=== PATIENT | female | born 1975 | race Asian ===

== ENCOUNTER 2017-12-28 10:49 | Emergency (ER) | payer OTHER ==
[~2017-12-28] VITALS: Ht 162.6 cm; Wt 57.8 kg
[2017-12-28 10:59] VITALS: BP 123/75
--- NOTE | 2017-12-28 11:23 | NUR ---
PATIENT AMBULATED TO BED 8.
--- NOTE | 2017-12-28 11:30 | NUR ---
42Y/F BIB PER DR BARRY WITH C/O VAGINAL BLEEDING/ABDOMINAL PAIN TODAY; QUANTATIVE HCG ON 12/17/2017 = 79, YESTERDAY = 73. VSS; PATIENT POSITIONED FOR COMFORT; HOB ELEVATED; BEDRAILS UP X1; BED DOWN. ER MD MADE AWARE OF PT STATUS.
--- NOTE | 2017-12-28 11:30 | NUR ---
PT URINE COLLECTED AND PUT INTO THE SPECIMEN CONATINER IN THE ER
--- NOTE | 2017-12-28 13:30 | NUR ---
Patient appears to be resting comfortably in bed.
[2017-12-28 14:23] LABS: BASOPHILS # (AUTO) 0.1 K/uL (0.00-0.22); BASOPHILS % (AUTO) 0.7 % (0.0-2.0); EOSINOPHILS # (AUTO) 0.1 K/uL (0-0.4); EOSINOPHILS % (AUTO) 0.7 % (0.0-4.0); HEMATOCRIT 38.2 % (36-48); HEMOGLOBIN 12.5 g/dL (12.0-16.0); LYMPHOCYTES # (AUTO) 2.6 K/uL (2.5-16.5); LYMPHOCYTES % (AUTO) 22.5 % (20.5-51.1); MEAN CORPUSCULAR HEMOGLOBIN 30 pg (27-31); MEAN CORPUSCULAR HGB CONC 33 g/dL (33-37); MEAN CORPUSCULAR VOLUME 91.3 fL (80-94); MONOCYTES # (AUTO) 0.6 K/uL (0.8-1.0); MONOCYTES % (AUTO) 4.8 % (1.7-9.3); NEUTROPHILS # (AUTO) 8.3 K/uL (1.8-7.7); NEUTROPHILS % (AUTO) 71.3 % (42.2-75.2); PLATELET COUNT (AUTO) 229 K/uL (140-450); RED BLOOD CELL COUNT(AUTO) 4.19 MIL/uL (4.20-5.40); RED CELL DISTRIBUTION WIDTH 12.7 % (11.6-13.7); WHITE BLOOD COUNT (AUTO) 11.7 K/uL (4.8-10.8)
[2017-12-28 14:46] LABS: BILIRUBIN,URINE NEGATIVE (NEGATIVE); BLOOD, URINE 3+ (NEGATIVE); COLOR,URINE YELLOW (YELLOW); LEUKOCYTE ESTERASE ,URINE NEGATIVE (NEGATIVE); NITRITE, URINE NEGATIVE (NEGATIVE); PH,URINE 7.5 (5.0-9.0); UGLUCOSE NEGATIVE (NEGATIVE)
[2017-12-28 14:51] LABS: APPEARANCE,URINE SLIGHTLY HAZY (CLEAR)
[2017-12-28 15:04] LABS: RBC,URINE 11-20 (MOD) /HPF (0-5); WBC,URINE 0-5 (RARE) /HPF (0-5)
[2017-12-28 16:40] VITALS: BP 120/73
== END 2017-12-28 16:40 | disposition home or self-care (01) ==
LOC: MED 10:49
DX: O03.80 Unspecified complication following complete or unspecified spontaneous abortion (principal); O02.0 Blighted ovum and nonhydatidiform mole; O09.521 Supervision of elderly multigravida, first trimester; Z3A.01 Less than 8 weeks gestation of pregnancy
CPT/HCPCS: 36415; 76817; 81001; 81025; 84702; 85025; 86900; 86901; 99285; Q0092